=== PATIENT | male | born 1940 | race Native Hawaiian/Other Pacific Islander ===

== ENCOUNTER 2017-02-09 09:32 | Outpatient (CLI) | payer OTHER, BC ==
[2017-02-09 10:02] LABS: PLATELET COUNT 280 K/uL (142-355)
[2017-02-09 10:50] LABS: POTASSIUM 4.7 mmol/L (3.6-5.2)
== END 2017-02-09 10:35 | disposition home or self-care (01) ==
LOC: LABW 09:32
PROVIDERS: Internal Medicine
DX: I10 Essential (primary) hypertension (principal); E11.9 Type 2 diabetes mellitus without complications
CPT/HCPCS: 36415; 80048; 82040; 82570; 83883; 84100; 84155; 84550; 85027; 86039

== ENCOUNTER 2017-02-28 09:41 | Outpatient (CLI) | payer OTHER, BC ==
[2017-02-28 10:06] LABS: POTASSIUM 5.6 mmol/L (3.6-5.2)
== END 2017-02-28 19:03 | disposition home or self-care (01) ==
LOC: LAB 09:41
PROVIDERS: Internal Medicine Cardiovascular Disease
DX: I10 Essential (primary) hypertension (principal)
CPT/HCPCS: 80053

== ENCOUNTER 2017-03-07 10:33 | Outpatient (CLI) | payer OTHER, BC ==
[2017-03-07 11:01] LABS: PLATELET COUNT 259 K/uL (142-355)
[2017-03-07 11:20] LABS: POTASSIUM 5.5 mmol/L (3.6-5.2)
== END 2017-03-07 11:35 | disposition home or self-care (01) ==
LOC: LABW 10:33
PROVIDERS: Nurse Practitioner Family
DX: E11.9 Type 2 diabetes mellitus without complications (principal); I10 Essential (primary) hypertension; E78.4 Other hyperlipidemia
CPT/HCPCS: 36415; 80069; 85027

== ENCOUNTER 2017-10-18 13:24 | Outpatient (CLI) | payer OTHER, BC ==
[2017-10-18 13:43] LABS: PLATELET COUNT 211 K/uL (142-355)
[2017-10-18 13:55] LABS: POTASSIUM 5.7 mmol/L (3.6-5.2)
== END 2017-10-18 20:01 | disposition home or self-care (01) ==
LOC: LAB 13:24
PROVIDERS: Internal Medicine
DX: I12.9 Hypertensive chronic kidney disease with stage 1 through stage 4 chronic kidney disease, or unspecified chronic kidney disease (principal); N18.3 Chronic kidney disease, stage 3 (moderate)
CPT/HCPCS: 80069; 85027

== ENCOUNTER 2017-10-21 09:29 | Outpatient (CLI) | payer OTHER, BC ==
[2017-10-21 09:45] LABS: POTASSIUM 4.7 mmol/L (3.6-5.2)
== END 2017-10-21 22:37 | disposition home or self-care (01) ==
LOC: LAB 09:29
PROVIDERS: Nurse Practitioner Family
DX: N18.4 Chronic kidney disease, stage 4 (severe) (principal)
CPT/HCPCS: 80069

== ENCOUNTER 2017-11-11 11:13 | Outpatient (CLI) | payer OTHER, BC ==
[2017-11-11 12:08] LABS: PLATELET COUNT 236 K/uL (142-355)
[2017-11-11 12:28] LABS: POTASSIUM 4.3 mmol/L (3.6-5.2)
== END 2017-11-11 19:46 | disposition home or self-care (01) ==
LOC: LAB 11:13
PROVIDERS: Internal Medicine Hematology & Oncology
DX: I12.9 Hypertensive chronic kidney disease with stage 1 through stage 4 chronic kidney disease, or unspecified chronic kidney disease (principal); N18.3 Chronic kidney disease, stage 3 (moderate); D63.1 Anemia in chronic kidney disease; E11.9 Type 2 diabetes mellitus without complications
CPT/HCPCS: 80048; 82040; 82728; 83540; 83550; 84100; 84550; 85027

== ENCOUNTER 2017-12-06 09:39 | Outpatient (CLI) | payer OTHER, BC | END 2017-12-06 23:12 | disposition home or self-care (01) | LOC: RESP 09:39 | DX: R06.02 Shortness of breath (principal) ==

== ENCOUNTER 2018-01-24 10:02 | Outpatient (CLI) | payer OTHER, BC ==
[2018-01-24 11:34] LABS: PLATELET COUNT 273 K/uL (142-355)
[2018-01-24 11:44] LABS: POTASSIUM 4.5 mmol/L (3.6-5.2)
== END 2018-01-24 21:58 | disposition home or self-care (01) ==
LOC: LABW 10:02
PROVIDERS: Internal Medicine
DX: I25.10 Atherosclerotic heart disease of native coronary artery without angina pectoris (principal); J44.9 Chronic obstructive pulmonary disease, unspecified; I10 Essential (primary) hypertension; E03.9 Hypothyroidism, unspecified; J61 Pneumoconiosis due to asbestos and other mineral fibers; E29.1 Testicular hypofunction; E11.9 Type 2 diabetes mellitus without complications; E53.8 Deficiency of other specified B group vitamins; E55.9 Vitamin D deficiency, unspecified; Z12.5 Encounter for screening for malignant neoplasm of prostate; D64.9 Anemia, unspecified; Z79.899 Other long term (current) drug therapy; E53.1 Pyridoxine deficiency; N18.9 Chronic kidney disease, unspecified
CPT/HCPCS: 36415; 80053; 80061; 82043; 82306; 82533; 82570; 82607; 82626; 82670; 82728; 82746; 83036; 83735; 84153; 84207; 84305; 84402; 84403; 84439; 84443; 85027; 86140

== ENCOUNTER 2018-04-20 13:17 | Outpatient (CLI) | payer OTHER, BC | END 2018-04-20 19:37 | disposition home or self-care (01) | LOC: LAB 13:17 | DX: G60.9 Hereditary and idiopathic neuropathy, unspecified (principal); Z79.899 Other long term (current) drug therapy | CPT/HCPCS: 82607; 82746; 82784; 82785; 84165; 84439; 84443; 85651; 86039; 86140; 86430 ==

== ENCOUNTER 2018-07-09 11:41 | Emergency (ER) | payer OTHER, BC ==
[~2018-07-09] VITALS: Ht 172.7 cm; Wt 77.1 kg
[2018-07-09] MEDS ORDERED: MONT10TA PO (12:03)
[2018-07-09] MEDS ORDERED: TRAMTAB2 PO (12:03)
[2018-07-09] MEDS ORDERED: CETI10TA PO (12:04)
[2018-07-09] MEDS ORDERED: EZET10TA13 PO (12:06)
[2018-07-09] MEDS ORDERED: DULCOLAX5 MG PO (12:07)
[2018-07-09] MEDS ORDERED: INSU100I2 SC (12:07)
[2018-07-09] MEDS ORDERED: CARAFATE1 GM/10 ML PO (12:08)
[2018-07-09] MEDS ORDERED: CARV6.25 PO (12:08)
[2018-07-09] MEDS ORDERED: MELATONIN5 M2 PO (12:08)
[2018-07-09] MEDS ORDERED: LEVO0.0529 PO (12:09)
[2018-07-09] MEDS ORDERED: PANTOPRAZOLE 40MG TA PO (12:09)
[2018-07-09] MEDS ORDERED: CLOP75TA2 PO (12:09)
[2018-07-09] MEDS ORDERED: ASPIR-8181 MG PO (12:09)
[2018-07-09 13:24] VITALS: BP 147/60; TEMP 97.5
== END 2018-07-09 13:25 | disposition home or self-care (01) ==
LOC: ED 11:41
DX: S70.02XA Contusion of left hip, initial encounter (principal); S39.012A Strain of muscle, fascia and tendon of lower back, initial encounter; Z96.642 Presence of left artificial hip joint; W18.12XA Fall from or off toilet with subsequent striking against object, initial encounter; Y92.89 Other specified places as the place of occurrence of the external cause
CPT/HCPCS: 99283

== ENCOUNTER 2018-09-27 09:32 | Outpatient (CLI) | payer OTHER, BC ==
[~2018-09-27 09:32] MED LIST: ASPIR-8181 MG PO; CARAFATE1 GM/10 ML PO; CARV6.25 PO; CETI10TA PO; CLOP75TA2 PO; DULCOLAX5 MG PO; EZET10TA13 PO; INSU100I2 SC; LEVO0.0529 PO; MELATONIN5 M2 PO; MONT10TA PO; PANTOPRAZOLE 40MG TA PO; TRAMTAB2 PO
[2018-09-27 10:13] LABS: PLATELET COUNT 246 K/uL (142-355)
== END 2018-09-27 20:11 | disposition home or self-care (01) ==
LOC: LABW 09:32
PROVIDERS: Internal Medicine
DX: J44.9 Chronic obstructive pulmonary disease, unspecified (principal); I10 Essential (primary) hypertension; E03.9 Hypothyroidism, unspecified; E78.2 Mixed hyperlipidemia; E29.1 Testicular hypofunction; E11.65 Type 2 diabetes mellitus with hyperglycemia; E53.8 Deficiency of other specified B group vitamins; E55.9 Vitamin D deficiency, unspecified; N40.0 Benign prostatic hyperplasia without lower urinary tract symptoms
CPT/HCPCS: 36415; 80053; 80061; 82306; 82607; 83036; 83735; 84153; 84402; 84403; 84439; 84443; 85027

== ENCOUNTER 2018-10-06 12:54 | Outpatient (CLI) | payer OTHER, BC | END 2018-10-06 20:01 | disposition home or self-care (01) | LOC: RAD 12:54 | DX: M25.511 Pain in right shoulder (principal) ==

== ENCOUNTER 2019-08-07 10:03 | Outpatient (CLI) | payer OTHER, BC ==
[2019-08-07 10:28] LABS: PLATELET COUNT 247 K/uL (142-355)
== END 2019-08-07 19:32 | disposition home or self-care (01) ==
LOC: US 10:03
PROVIDERS: Internal Medicine Nephrology
DX: R94.4 Abnormal results of kidney function studies (principal); N08 Glomerular disorders in diseases classified elsewhere
CPT/HCPCS: 80069; 81000; 82570; 84155; 85027

== ENCOUNTER 2019-12-05 15:01 | Outpatient (CLI) | payer OTHER, BC | END 2019-12-05 22:11 | disposition home or self-care (01) | LOC: LAB 15:01 | DX: Z03.818 Encounter for observation for suspected exposure to other biological agents ruled out (principal) | CPT/HCPCS: 87635; G2023; U00003 ==

== ENCOUNTER 2019-12-12 10:41 | Outpatient (CLI) | payer OTHER, BC | END 2019-12-12 21:32 | disposition home or self-care (01) | LOC: US 10:41 | DX: R60.0 Localized edema (principal) ==

== ENCOUNTER 2019-12-18 08:03 | Outpatient (CLI) | payer OTHER, BC | END 2019-12-18 20:34 | disposition home or self-care (01) | LOC: NM 08:03 | DX: I27.20 Pulmonary hypertension, unspecified (principal) | CPT/HCPCS: A9540; A9567 ==

== ENCOUNTER 2020-01-09 11:45 | Outpatient (CLI) | payer OTHER, BC ==
[2020-01-09 12:29] LABS: PLATELET COUNT 199 K/uL (142-355)
[2020-01-09 12:37] LABS: POTASSIUM 5.8 mmol/L (3.6-5.2)
== END 2020-01-09 19:45 | disposition home or self-care (01) ==
LOC: LAB 11:45
PROVIDERS: Internal Medicine Cardiovascular Disease
DX: Z01.818 Encounter for other preprocedural examination (principal)
CPT/HCPCS: 80053; 85027

== ENCOUNTER 2020-02-22 14:45 | Outpatient (CLI) | payer OTHER, BC ==
[2020-02-22 15:16] LABS: POTASSIUM 6.2 mmol/L (3.6-5.2)
== END 2020-02-22 23:33 | disposition home or self-care (01) ==
LOC: LAB 14:45
PROVIDERS: Internal Medicine Pulmonary Disease
DX: R60.0 Localized edema (principal); I27.20 Pulmonary hypertension, unspecified
CPT/HCPCS: 80048; 83880

== ENCOUNTER 2020-05-14 14:23 | Outpatient (CLI) | payer OTHER, BC | END 2020-05-14 21:10 | disposition home or self-care (01) | LOC: LAB 14:23 | PROVIDERS: ATTEND Internal Medicine Pulmonary Disease | DX: R06.09 Other forms of dyspnea (principal) | CPT/HCPCS: 83880 ==

== ENCOUNTER 2020-05-27 09:14 | Outpatient (CLI) | payer OTHER, BC | END 2020-05-27 19:10 | disposition home or self-care (01) | LOC: CT 09:14 | PROVIDERS: ATTEND Internal Medicine Pulmonary Disease | DX: R06.09 Other forms of dyspnea (principal) ==

== ENCOUNTER 2020-06-26 14:55 | Outpatient (CLI) | payer OTHER, BC ==
[2020-06-26 15:12] LABS: POTASSIUM 4.7 mmol/L (3.6-5.2)
[2020-06-26 15:13] LABS: PLATELET COUNT 214 K/uL (142-355)
== END 2020-06-26 20:49 | disposition home or self-care (01) ==
LOC: LAB 14:55
PROVIDERS: ATTEND Internal Medicine Nephrology
DX: R06.09 Other forms of dyspnea (principal); N08 Glomerular disorders in diseases classified elsewhere
CPT/HCPCS: 80069; 81000; 82570; 83880; 84155; 85027

== ENCOUNTER 2020-07-09 20:18 | Emergency (ER) | payer OTHER, BC ==
[~2020-07-09] VITALS: Ht 172.7 cm; Wt 76.2 kg
[2020-07-09 20:33] LABS: PLATELET COUNT 233 K/uL (142-355); POTASSIUM 5.3 mmol/L (3.6-5.2); SODIUM 136 mmol/L (136-145)
[2020-07-09 21:45] VITALS: BP 147/71; TEMP 98.3
== END 2020-07-09 21:45 | disposition home or self-care (01) ==
LOC: ED 20:18
PROVIDERS: Family Medicine
DX: R55 Syncope and collapse (principal); N28.9 Disorder of kidney and ureter, unspecified; J44.9 Chronic obstructive pulmonary disease, unspecified; Z03.818 Encounter for observation for suspected exposure to other biological agents ruled out
CPT/HCPCS: 36415; 80053; 82550; 84484; 85027; 87635; 93005; 96374; 96375; 99284; J2930; U0003

== ENCOUNTER 2020-09-24 13:36 | Outpatient (CLI) | payer OTHER, BC ==
[2020-09-24 14:49] LABS: PLATELET COUNT 228 K/uL (142-355)
[2020-09-24 15:33] LABS: POTASSIUM 5.6 mmol/L (3.6-5.2)
== END 2020-09-24 21:30 | disposition home or self-care (01) ==
LOC: LAB 13:36
PROVIDERS: ATTEND Internal Medicine Nephrology
DX: N08 Glomerular disorders in diseases classified elsewhere (principal)
CPT/HCPCS: 80069; 81000; 82570; 84155; 85027

== ENCOUNTER 2020-09-29 14:58 | Outpatient (CLI) | payer OTHER, BC | END 2020-09-29 22:31 | disposition home or self-care (01) | LOC: RESP 14:58 | PROVIDERS: ATTEND Internal Medicine Pulmonary Disease | DX: I27.20 Pulmonary hypertension, unspecified (principal) ==

== ENCOUNTER 2020-11-12 09:29 | Outpatient (CLI) | payer OTHER, BC | END 2020-11-12 23:02 | disposition home or self-care (01) | LOC: LAB 09:29 | PROVIDERS: ATTEND Internal Medicine Cardiovascular Disease | DX: E78.49 Other hyperlipidemia (principal); Z79.899 Other long term (current) drug therapy | CPT/HCPCS: 80061; 80076 ==

== ENCOUNTER 2021-02-16 09:01 | Outpatient (CLI) | payer OTHER, BC | END 2021-02-16 22:15 | disposition home or self-care (01) | LOC: RAD 09:01 | PROVIDERS: ATTEND Nurse Practitioner Family | DX: R06.09 Other forms of dyspnea (principal) ==

== ENCOUNTER 2021-05-05 09:29 | Outpatient (CLI) | payer OTHER, BC ==
[2021-05-05 09:52] LABS: PLATELET COUNT 216 K/uL (142-355)
[2021-05-05 10:16] LABS: POTASSIUM 4.6 mmol/L (3.6-5.2)
== END 2021-05-05 19:04 | disposition home or self-care (01) ==
LOC: LAB 09:29
PROVIDERS: ATTEND Internal Medicine Nephrology
DX: N18.30 Chronic kidney disease, stage 3 unspecified (principal); N08 Glomerular disorders in diseases classified elsewhere
CPT/HCPCS: 80069; 81000; 82570; 84155; 85027

== ENCOUNTER 2021-07-07 15:04 | Emergency (ER) | payer OTHER, BC ==
[~2021-07-07] VITALS: Ht 172.7 cm; Wt 76.2 kg
[2021-07-07 15:25] LABS: PLATELET COUNT 234 K/uL (142-355)
[2021-07-07 15:39] LABS: POTASSIUM 5.3 mmol/L (3.6-5.2)
[2021-07-07 22:00] VITALS: BP 156/70; TEMP 98.1
== END 2021-07-07 21:38 | disposition short-term general hospital (02) ==
LOC: ED 15:04
PROVIDERS: Emergency Medicine
DX: R00.1 Bradycardia, unspecified (principal)
CPT/HCPCS: 80053; 84484; 85027; 85610; 93005; 99284

== ENCOUNTER 2021-10-19 13:50 | Outpatient (CLI) | payer OTHER, BC ==
[2021-10-19 14:02] LABS: PLATELET COUNT 243 K/uL (142-355)
[2021-10-19 15:13] LABS: POTASSIUM 5.4 mmol/L (3.6-5.2)
== END 2021-10-19 18:54 | disposition home or self-care (01) ==
LOC: LAB 13:50
PROVIDERS: ATTEND Internal Medicine Nephrology
DX: N18.30 Chronic kidney disease, stage 3 unspecified (principal); N08 Glomerular disorders in diseases classified elsewhere
CPT/HCPCS: 80069; 85027

== ENCOUNTER 2021-10-20 13:16 | Outpatient (CLI) | payer OTHER, BC | END 2021-10-20 19:04 | disposition home or self-care (01) | LOC: LAB 13:16 | PROVIDERS: ATTEND Internal Medicine Nephrology | DX: N18.30 Chronic kidney disease, stage 3 unspecified (principal); N08 Glomerular disorders in diseases classified elsewhere | CPT/HCPCS: 81000; 82570; 84156; 87086; 87088 ==

== ENCOUNTER 2022-02-15 15:30 | Outpatient (CLI) | payer OTHER, BC | END 2022-02-15 19:24 | disposition home or self-care (01) | LOC: RAD 15:30 | PROVIDERS: ATTEND Internal Medicine | DX: M54.59 Other low back pain (principal); Z91.81 History of falling ==